=== PATIENT | female | born 1990 | race Caucasian/White ===

== ENCOUNTER 2018-05-01 05:59 | Inpatient (IN) ==
[2018-05-01] MEDS ORDERED: DEXTROSE 5%-LACTATED RINGERS 1,000 ML IV PRN (06:24)
[2018-05-01] MEDS ORDERED: ONDANSETRON HCL/PF 2 MG/ML VIAL IV PRN ×2 (06:24→16:35)
[2018-05-01] MEDS: OXYTOCIN/DEXTROSE 5%-WATER 30 UNITS/500 ML BAG IV ONE (07:18)
--- NOTE | 2018-05-01 10:53 | PN ---
Progess Note - Interim Date: 05/01/18 Time: 10:51 Narrative: 05/01/18 10:51 Patient rating contractions as mild Vital signs stable. Pitocin at 9 mu/min. FHT: 130 baseline, reassuring Contractions q 2-3 min Cervix: 3/60/-2 Impression: Intrauterine at 39 5/7 weeks elective induction of labor Plan: Continue present plan
--- NOTE | 2018-05-01 13:07 | PN ---
Progess Note - Interim Date: 05/01/18 Time: 13:01 Narrative: 05/01/18 13:01 Patient starting to become more uncomfortable with contractions Vital signs stable. Pitocin at 18 mu/min. FHT: 135 baseline, reassuring Contractions q 2-3 min Cervix: 3/80/-2, AROM-clear Impression: Intrauterine at 39-5/7 weeks elective induction of labor Plan: Continue present plan
[2018-05-01] MEDS: RINGER'S SOLUTION,LACTATED 1,000 ML IV ONE (16:20)
[2018-05-01] MEDS ORDERED: BUPIVACAINE HCL/0.9 % NACL/PF 250 ML EP PRN (16:35)
[2018-05-01] MEDS ORDERED: NALOXONE HCL 1 MG/1 ML SYRG IV PRN (16:35)
[2018-05-01] MEDS ORDERED: fentaNYL CITRATE/PF 50 MCG/ML AMPUL IT SCH (16:45)
--- NOTE | 2018-05-01 17:19 | ANES ---
Anesthesia Pre Procedure Eval Vitals/Labs: Last Vital Signs Temp 36.8 C 05/01/18 06:25 Pulse 88 05/01/18 06:25 Resp 18 05/01/18 06:25 BP 127/75 05/01/18 06:25 Pulse Ox 99 05/01/18 06:25 HOME MEDICATIONS RX: Vits96/Iron Fum/Folic [ S] 1 tab PO DAILY 11/12/13 [Last Taken 04/30/18 21:00] Allergies/Adverse Reactions: Allergies Allergy/AdvReac Type Severity Reaction Status Date / Time No Known Allergies Allergy Unverified 11/12/13 06:39 - Planned Procedure Planned Procedure: elective induction Medication List Reviewed:: Yes Allergies Verified: Yes Medical History (Last Reviewed 04/13/18 @ 09:34 by Brando Wyatt) Breast lump Onset Date: ~12/2015 ADD (attention deficit disorder) Onset Date: ~2009 Anxiety Onset Date: ~2009 Cardiac murmur Onset Date: ~03/28/10 Tricuspid regurgitation Onset Date: ~2009 Anemia Onset Date: 08/17/13 Chlamydia Onset Date: ~2006 Surgical History (Last Reviewed 04/13/18 @ 09:34 by Brando Wyatt) H/O wisdom tooth extraction Onset Date: ~11/2011 History of appendectomy Onset Date: ~03/1999 Family History (Last Reviewed 04/13/18 @ 09:34 by Brando Wyatt) Father Depression Generalized anxiety disorder Grandfather Diabetes Hypertension Sister Generalized anxiety disorder Asthma Lupus - Family Anesthesia History Family History:: no untoward family reactions to anesthesia - Airway/Neck/Teeth Within Normal Limits:: Yes Mallampatti Score: 2 Thyromental (T-M) distance: > 6 cm Mandibulo Hyoid distance: > 3 cm - Respiratory Respiratory: lungs clear Smoking Status: Never smoker - Cardiovascular Patient History - Cardiac/Respiratory: No pertinent hx Tolerates Activity: Good Heart Sounds: S1 & S2, Regular - Anesthesia Assessment and Plan ASA Class: PS, II, E Anesthesia Type Plan: Epidural
--- NOTE | 2018-05-01 17:51 | ANES ---
Anesthesia Procedure Note Procedure Note: ANESTHESIA PROCEDURE NOTE Date of Procedure: 05/01/2018 Time of procedure:[]. 1740 Performed by: Peter Kennedy CRNA [employer]: None. Preprocedure diagnosis: Active labor. Post procedure diagnosis: Same. Procedure: Insertion of labor epidural. Indications: The patient is a [] 28-year-old [multigravida] female in active labor requesting labor epidural for pain management. Findings: See below. Details of the procedure: The patient was placed in a sitting position. Back was prepped with DuraPrep. Patient was then draped in a sterile fashion. Lidocaine 1% was infiltrated to the skin and subcutaneous tissues at the level of the L3 4 interspace. The epidural space was identified using a 18-gauge Tuohy needle with [id number] technique. 20 mcg fentanyl was given intrathecally using a 27 ga. spinal needle. Epidural catheter was inserted without difficulty. Negative test dose was elicited using 5 mL of 1.5% preservative-free lidocaine plus epinephrine 1 200,000. The epidural catheter was then taped and secured in place. EBL: Minimal. Fluids: N/A. Specimen: N/A. Post procedure condition: The patient tolerated the procedure well. No complications were noted. Thank you for this consultation. Brasher CRNA
--- NOTE | 2018-05-01 17:52 | ANES ---
Post Anesthesia Discharge - Transfer of Care Transfer of Care handoff given to nurse: Yes - Anesthesia Post Op Note Anesthesia Post Op Note: care transferred to OB RN
--- NOTE | 2018-05-01 17:57 | ANES ---
Post Anesthesia Assessment - Vital Signs Vitals: Last Vital Signs Temp 36.8 C 05/01/18 06:25 Pulse 88 05/01/18 06:25 Resp 18 05/01/18 06:25 BP 127/75 05/01/18 06:25 Pulse Ox 99 05/01/18 06:25 Airway Patency: Normal - Mental Status Level Of Consciousness: Awake - Pain Level Pain Score: 2 - N/V Assessment Nausea/Vomiting Presence: None Dehydration:: No
--- NOTE | 2018-05-01 18:13 | HP ---
Chief Complaint - Chief Complaint Date of Service: 05/01/18 Time of Service: 18:04 Chief Complaint: elective induction of labor History of Present Illness: 28 yo at 39 5/7wks here for elective induction of labor. This uncomplicated to date. Rh positive (O+) RI GBS negative Medical History (Last Reviewed 05/01/18 @ 18:08 by Mohan Camacho DO) Breast lump Onset Date: ~12/2015 ADD (attention deficit disorder) Onset Date: ~2009 Anxiety Onset Date: ~2009 Cardiac murmur Onset Date: ~03/28/10 Tricuspid regurgitation Onset Date: ~2009 Anemia Onset Date: 08/17/13 Chlamydia Onset Date: ~2006 Surgical History: Surgical History (Last Reviewed 05/01/18 @ 18:08 by Mohan Camacho DO) H/O wisdom tooth extraction Onset Date: ~11/2011 History of appendectomy Onset Date: ~03/1999 Family History: Family History (Last Reviewed 05/01/18 @ 18:08 by Mohan Camacho DO) Father Depression Generalized anxiety disorder Grandfather Diabetes Hypertension Sister Generalized anxiety disorder Asthma Lupus Social History: Preferred Language Tristanian Smoking Status Never smoker Review Of Systems (GEN) - Review of Systems Generalized/Overall Review: Present: No Symptoms Reported EENTM: Present: No Symptoms Reported Respiratory: Present: No Symptoms Reported Cardiac: Present: No Symptoms Reported Abdominal: Present: No Symptoms Reported Genitourinary: Present: No Symptoms Reported Musculoskeletal: Present: No Symptoms Reported Neurological: Present: No Symptoms Reported Skin: Present: No Symptoms Reported Allergies/Adverse Reactions: Allergies Allergy/AdvReac Type Severity Reaction Status Date / Time No Known Allergies Allergy Unverified 11/12/13 06:39 Home Medications: HOME MEDICATIONS Vits96/Iron Fum/Folic [ S] 1 tab PO DAILY 11/12/13 [Last Taken 04/30/18 21:00] Exam - Exam Vital Signs: Vital Signs - Last Taken Temp 36.8 C 05/01/18 06:25 Pulse 88 05/01/18 06:25 Resp 18 05/01/18 06:25 BP 127/75 05/01/18 06:25 Pulse Ox 99 05/01/18 06:25 Constitutional: Present: Alert, Oriented x3, Cooperative, No distress ENT Exam: Present: hearing grossly normal Breasts: Present: Exam deferred Respiratory: Present: lungs clear, no respiratory distress Cardiovascular/Chest: Present: normal peripheral pulses, regular rate, rhythm, no edema Abdomen: Present: soft, nontender, no rebound tenderness, other - Gravid /Rectal: Present: Other - cervix 2/60/-2 Extremity: Present: non-tender, no pedal edema, no calf tenderness Skin Exam: Present: normal color, warm/dry, no cyanosis Lymphatic: Present: no adenopathy Neurologic: Present: normal mood/affect, oriented x 3 Appearance: Present: appropriate appearance, appropriate insight Eye contact: Present: cooperative, good eye contact, normal speech Thoughts: Present: normal thought pattern Assessment/Plan - Assessment/Plan (1) Encounter for elective induction of labor Assessment: Pitocin induction of labor. Epidural PRN. Problem: Acute
--- NOTE | 2018-05-01 20:26 | PN ---
Progess Note - Interim Date: 05/01/18 Time: 20:23 Narrative: 05/01/18 20:23 Patient comfortable with epidural Vital signs stable. Pitocin at 18 mu/min. FHT: 120 baseline, minimal variability responded to position change and IV fluid bolus of D5 LR. Contractions q 2-3 min Cervix: 8/75/-1 Impression: Intrauterine at 39-5/7 weeks elective induction of labor Plan: Expect normal spontaneous vaginal delivery within the next 2 hours.
[2018-05-02] MEDS ORDERED: BUTORPHANOL TARTRATE 2 MG/ML VIAL ONE (00:13)
[2018-05-02] MEDS: RINGER'S SOLUTION,LACTATED 1,000 ML IV ONE (00:30)
[2018-05-02] MEDS ORDERED: GLYCERIN/WITCH HAZEL LEAF 40 APPL BOX TP PRN (00:32)
[2018-05-02] MEDS ORDERED: BENZOCAINE/MENTHOL 81 SPRAY CAN TP PRN (00:32)
[2018-05-02] MEDS ORDERED: SENNOSIDES 8.6 MG TABLET PO PRN (00:32)
[2018-05-02] MEDS ORDERED: BISACODYL 10 MG SUPP.RECT RC PRN (00:32)
[2018-05-02] MEDS ORDERED: oxyCODONE HCL/ACETAMINOPHEN 1 TAB TABLET PO PRN (00:32)
[2018-05-02] MEDS ORDERED: HYDROCORTISONE 30 APPL TUBE TP PRN (00:32)
[2018-05-02] MEDS ORDERED: OXYTOCIN/DEXTROSE 5%-WATER 30 UNITS/500 ML BAG IV ONE (00:32)
[2018-05-02] MEDS ORDERED: MISOPROSTOL 200 MCG TABLET PO STA (00:32)
[2018-05-02] MEDS ORDERED: BUTORPHANOL TARTRATE 2 MG/ML VIAL IV STA (00:32)
[2018-05-02] MEDS ORDERED: RINGER'S SOLUTION,LACTATED 1,000 ML IV PRN (00:36)
--- NOTE | 2018-05-02 00:36 | OR ---
Operative Report - Dictated Report Narrative: Spontaneous vaginal delivery of viable male at 2336 on 05/01/2018 with Apgars 8 and 9, weighing 3781 g in KURTIS position. Cord clamping delayed approximately 1 minute Placenta required manual extraction after waiting 33 minutes for spontaneous delivery Estimated blood loss: 800 mL due to uterine atony which responded to Pitocin 30 mU/m IV and Cytotec 1000 g rectally 1 Anesthesia: Epidural and Stadol 2 mg IV 1 for manual extraction of placenta Lacerations: None History for MU Definition: * The number of deliveries resulting in a live the patient experienced prior to current hospitalization * The previous delivery of live twins or any live multiple gestation is considered one live event. *If primagravida or nulliparous is documented select zero for the number of previous live births. Live Events: 2
[2018-05-02] MEDS: OXYTOCIN/DEXTROSE 5%-WATER 30 UNITS/500 ML BAG IV ONE (01:15)
[2018-05-02] MEDS: IBUPROFEN 800 MG TABLET PO PRN ×3 (04:50→18:44)
[2018-05-02] MEDS: oxyCODONE HCL/ACETAMINOPHEN 1 TAB TABLET PO PRN ×3 (07:10→22:12)
[2018-05-02] MEDS: PRENATAL VITS96/IRON FUM/FOLIC 1 TAB TABLET PO SCH (08:39)
[2018-05-02] MEDS: DOCUSATE SODIUM 100 MG CAPSULE PO SCH ×2 (08:39→21:44)
[2018-05-02] MEDS: FERROUS SULFATE 325 MG TABLET PO SCH ×2 (08:39→16:12)
[2018-05-02] MEDS ORDERED: ceFAZolin SODIUM/DEXTROSE,ISO 2 GM/50 ML BAG IV ONE (11:23)
--- NOTE | 2018-05-02 11:23 | PN ---
Subjective - Date and Time Seen Date: 05/02/18 Time: 11:16 Objective - Vitals Vitals: Last Vital Signs Temp 36.4 C 05/02/18 07:23 Pulse 100 05/02/18 07:23 Resp 18 05/02/18 07:23 BP 111/69 05/02/18 07:23 Pulse Ox 95 05/02/18 07:23 Patient denies complaints. Breast-feeding Lochia wnl Abdomen - soft, nontender Uterus - firm, at umbilicus - 1 No calf tenderness Impression: day #1 - s/p spontaneous vaginal delivery. Manual extraction of retained placenta Plan: Continue routine care. We'll give 1 dose of Ancef for prophylaxis against endometritis. Cauti Physician Documentation - Urinary Catheter Management Urethral (Mendoza) Date of Insertion: 05/01/18 Time of Insertion: 18:00 Assessment/Plan - Problems/Diagnosis (1) Encounter for elective induction of labor Problem: Acute
[2018-05-03] MEDS: IBUPROFEN 800 MG TABLET PO PRN (07:43)
[2018-05-03 08:04] VITALS: BP 108/66
[2018-05-03] MEDS: FERROUS SULFATE 325 MG TABLET PO SCH (09:14)
[2018-05-03] MEDS: DOCUSATE SODIUM 100 MG CAPSULE PO SCH (09:14)
[2018-05-03] MEDS: PRENATAL VITS96/IRON FUM/FOLIC 1 TAB TABLET PO SCH (09:14)
--- NOTE | 2018-05-03 09:33 | PN ---
Subjective - Date and Time Seen Date: 05/03/18 Time: 09:30 Objective - Vitals Vitals: Last Vital Signs Temp 36.6 C 05/03/18 07:53 Pulse 79 05/03/18 07:53 Resp 18 05/03/18 07:53 BP 108/66 05/03/18 07:53 Pulse Ox 99 05/03/18 07:53 Patient denies complaints. Breast-feeding well. Lochia wnl Abdomen - soft, mild suprapubic tenderness where uterine massage was performed during manual extraction of placenta Uterus - firm, at umbilicus - 2, nontender No calf tenderness Impression: day #2 - s/p spontaneous vaginal delivery. Retained placenta requiring manual extraction. hemorrhage due to uterine atony requiring Cytotec 1000 g rectally 1. Plan: Routine discharge instructions. Patient to follow up in 1-2 weeks. Patient instructed to observe closely for signs symptoms of uterine infection. Cauti Physician Documentation - Urinary Catheter Management Urethral (Mendoza) Date of Insertion: 05/01/18 Time of Insertion: 18:00 Assessment/Plan - Problems/Diagnosis (1) Encounter for elective induction of labor Problem: Acute
== END 2018-05-03 12:00 | disposition home or self-care (01) | DRG 774 ==
LOC: SUR 05:59 → EDSTATUS 06:00 → OB 06:22
PROVIDERS: ADMIT Obstetrics & Gynecology; ATTEND Obstetrics & Gynecology
CPT/HCPCS: 59025; 88307